=== PATIENT | female | born 1990 | race Caucasian/White ===

== ENCOUNTER 2020-03-09 10:42 | Outpatient (CLI) | payer OTHER ==
--- NOTE | 2020-03-09 11:32 | ULT ---
ULTRASOUND OBSTETRICAL COMPLETE: DATE: 03/09/2020 HISTORY: 29-year-old female with vaginal bleeding. FINDINGS: number: earl lie: Breech Maternal cervix: 3 cm. Closed. Placenta: Anterior. No placenta previa. No abruptio placentae. Amniotic fluid volume: Subjectively normal heart rate: 135 bpm The following anatomy is visualized, with no evidence of anomalies: Head, four-chamber heart, stomach, cord insertion, bladder, upper extremities, and lower extremities. The rest of the anatomy is poorly visualized because of early stage of . biometry: Biparietal diameter (BPD): 3.1 cm 15 w 6 d Head circumference (HC): 11.3 cm 15 w 4 d Abdominal circumference (AC): 9.2 cm 15 w 3 d Femur length (FL): 1.6 cm 14 w 6 d Average ultrasound age (AUA): 15 w 3 d Estimated date of delivery (SOTO): 08/28/2020 Estimated weight (EFW): 115 g +/- 17 g IMPRESSION: 1) Live early 2nd trimester intrauterine gestation. 2) Estimated gestational age of 15 weeks, 3 days 3) breech lie. 4) no acute pathology identified.
== END 2020-03-09 10:43 | disposition home or self-care (01) ==
LOC: BICULT 10:42
PROVIDERS: ATTEND Family Medicine
DX: O46.92 Antepartum hemorrhage, unspecified, second trimester (principal); Z3A.15 15 weeks gestation of pregnancy
CPT/HCPCS: 76805

== ENCOUNTER 2021-05-06 10:10 | Outpatient (CLI) | payer OTHER | END 2021-05-06 10:11 | disposition home or self-care (01) | LOC: BICRAD 10:10 | PROVIDERS: ATTEND Podiatrist | DX: M72.2 Plantar fascial fibromatosis (principal); M77.32 Calcaneal spur, left foot ==